=== PATIENT | female | born 1985 | race Two or more races ===

== ENCOUNTER 2020-04-18 05:07 | Inpatient (IN) | payer SELFPAY ==
[~2020-04-18] VITALS: Ht 162.6 cm; Wt 108.4 kg
[2020-04-18] MEDS ORDERED: IV RINGERS,LACTATED 1000ML 1,000 ML IV PRN (05:30)
[2020-04-18] MEDS ORDERED: IV RINGERS,LACTATED 1000ML 1,000 ML IV SCH (05:44)
[2020-04-18] MEDS ORDERED: BUTORPHANOL 2 MG/ML VIAL. IVP PRN ×2 (05:45)
[2020-04-18] MEDS ORDERED: 0.9 % SODIUM CHLORIDE 10 ML DISP.SYRIN. IV PRN ×2 (05:45→08:00)
[2020-04-18] MEDS ORDERED: LIDOCAINE 1% PF 30 ML VIAL. INJ PRN (05:45)
[2020-04-18] MEDS ORDERED: ONDANSETRON PF 4 MG/2 ML VIAL. IVP PRN (05:45)
[2020-04-18] MEDS ORDERED: TERBUTALINE 1 MG/ML VIAL. SQ PRN (05:45)
[2020-04-18] MEDS ORDERED: OXYTOCIN 30 UNIT/500 ML PREMIX 500 ML IV PRN ×3 (05:45→08:00)
[2020-04-18] MEDS ORDERED: ACETAMINOPHEN 325 MG TABLET. PO PRN ×2 (05:45→08:00)
[2020-04-18] MEDS ORDERED: fentaNYL PF VIAL 100 MCG/2 ML VIAL IVP PRN ×3 (05:45)
[2020-04-18 05:54] LABS: BILIRUBIN,URINE NEGATIVE (NEG); CLARITY,URINE CLEAR; COLOR,URINE YELLOW; NITRITE,URINE NEGATIVE (NEG); PH,URINE 6.5 (<5.0-8.0); PROTEIN,URINE NEGATIVE (NEG-TRACE); UROBILINOGEN,URINE 0.2 mg/dL (0.2 mg/dL)
[2020-04-18 06:02] LABS: BARBITURATES NEG (NEG); BENZODIAZEPINES NEG (NEG); CANNABINOIDS NEG (NEG); COCAINE NEG (NEG); METHADONE NEG (NEG); OPIATES NEG (NEG); PHENCYCLIDINE NEG (NEG)
[2020-04-18 06:04] LABS: BACTERIA,URINE MODERATE /HPF (0-FEW); SQUAMOUS EPITHELIAL CELL,UR MANY /LPF
[2020-04-18 06:08] LABS: AMPHETAMINE/METHAMPHETAMINE NEG (NEG)
[2020-04-18 06:36] LABS: BASO % 0 % (0-3); EOS % 1 % (0-3); HEMATOCRIT 33.4 % (36.0-47.0); HEMOGLOBIN 11.1 g/dL (12.0-15.5); LYMPH # 1.8 x10^3/uL (1.0-4.8); LYMPH % 22 % (24-48); MEAN CORPUSCULAR HEMOGLOBIN 27 pg (25-35); MEAN CORPUSCULAR HGB CONC 33 g/dL (31-37); MEAN CORPUSCULAR VOLUME 82 fL (79-100); MONO # 0.6 x10^3/uL (0.0-1.1); MONO % 7 % (0-9); NEUT # 5.7 x10^3/uL (1.8-7.7); NEUT % 71 % (31-73); PLATELET COUNT 232 x10^3/uL (140-400); RED BLOOD COUNT 4.05 x10^6/uL (3.50-5.40); RED CELL DISTRIBUTION WIDTH 15.4 % (11.5-14.5); WHITE BLOOD COUNT 8.1 x10^3/uL (4.0-11.0)
--- NOTE | 2020-04-18 07:52 | PDOC ---
GENERAL General: 35yrs old lady EDC 04/23/20 admitted in active labor with contractions. ALLERGIES Allergies: Allergies Coded Allergies Type Severity Reaction Last Updated Verified No Known Drug Allergies 04/18/20 No MEDS Medications: Current Medications Medications (Trade) Dose Ordered Sig/[place] Route PRN Reason Start Time Stop Time Status Last Admin Dose Admin Ringer's Solution 1,000 ml @ 125 mls/hr Q8H IV 04/18/20 05:44 04/18/20 06:14 LAB Lab: Laboratory Tests Test 04/18/20 05:45 04/18/20 06:15 Urine Collection Type Unknown Urine Color Yellow Urine Clarity Clear Urine pH 6.5 (<5.0-8.0) Urine Specific [place] 1.010 (1.000-1.030) Urine Protein Negative mg/dL (NEG-TRACE) Urine Glucose (UA) Negative mg/dL (NEG) Urine Ketones (Stick) Negative mg/dL (NEG) Urine Blood Large (NEG) Urine Nitrite Negative (NEG) Urine Bilirubin Negative (NEG) Urine Urobilinogen Dipstick 0.2 mg/dL (0.2 mg/dL) Urine Leukocyte Esterase Small (NEG) Urine RBC 6-10 /HPF (0-2) Urine WBC 11-20 /HPF (0-4) Urine Squamous Epithelial Cells Many /LPF Urine Bacteria Moderate /HPF (0-FEW) Urine Opiates Screen Neg (NEG) Urine Methadone Screen Neg (NEG) Urine Barbiturates Neg (NEG) Urine Phencyclidine Screen Neg (NEG) Urine Amphetamine/Methamphetamine Neg (NEG) Urine Benzodiazepines Screen Neg (NEG) Urine Cocaine Screen Neg (NEG) Urine Cannabinoids Screen Neg (NEG) Urine Ethyl Alcohol Neg (NEG) White Blood Count 8.1 x10^3/uL (4.0-11.0) Red Blood Count 4.05 x10^6/uL (3.50-5.40) Hemoglobin 11.1 g/dL (12.0-15.5) L Hematocrit 33.4 % (36.0-47.0) L Mean Corpuscular Volume 82 fL (79-100) Mean Corpuscular Hemoglobin 27 pg (25-35) Mean Corpuscular Hemoglobin Concent 33 g/dL (31-37) Red Cell Distribution Width 15.4 % (11.5-14.5) H Platelet Count 232 x10^3/uL (140-400) Neutrophils (%) (Auto) 71 % (31-73) Lymphocytes (%) (Auto) 22 % (24-48) L Monocytes (%) (Auto) 7 % (0-9) Eosinophils (%) (Auto) 1 % (0-3) Basophils (%) (Auto) 0 % (0-3) Neutrophils # (Auto) 5.7 x10^3/uL (1.8-7.7) Lymphocytes # (Auto) 1.8 x10^3/uL (1.0-4.8) Monocytes # (Auto) 0.6 x10^3/uL (0.0-1.1) Eosinophils # (Auto) 0.0 x10^3/uL (0.0-0.7) Basophils # (Auto) 0.0 x10^3/uL (0.0-0.2) Laboratory Tests 04/18/20 06:15 ASSESSMENT & PLAN A&P in active Labor. Cervix dilated to 5 to 6 cms.Membranes intact. Plan Vaginal Delivery. STEFAN ALVARADO MD April 18, 2020 07:52
--- NOTE | 2020-04-18 07:57 | HP ---
ADMIT DATE: 04/18/2020 CHIEF COMPLAINT AND HISTORY OF PRESENT ILLNESS: This patient is a 35-year-old [place] lady who had care at the [facility], came into the hospital with a history of having contractions. The patient in active labor. At the time of admission to the hospital, cervix was dilated to 5-6 cm and she is 3, para 2. Membranes intact, vertex presenting. The patient admitted to the hospital. PHYSICAL EXAMINATION: VITAL SIGNS: Reveals vital signs being stable. ABDOMEN: Term size uterus. heart tones are 140 per minute, vertex presenting. PELVIC: As mentioned above, 5-6 cm dilated and the patient in active labor. ALLERGIES: None known. REVIEW OF SYSTEMS: Essentially negative. IMPRESSION: 3, para 2, the patient in active labor. PLAN: Vaginal delivery. STEFAN ALVARADO MD DR: RUPESH/ponce JOB#: [id number] / [id number]
[2020-04-18] MEDS ORDERED: MAG HYDROX/ALUMINUM HYD/SIMETH 30 ML ORAL.SUSP PO PRN (08:00)
[2020-04-18] MEDS ORDERED: TDaP (Adacel) per PROTOCOL. MC PRN (08:00)
[2020-04-18] MEDS ORDERED: oxyCODONE/APAP 5/325 1 TAB TABLET PO PRN (08:00)
[2020-04-18] MEDS ORDERED: ZOLPIDEM 5 MG TABLET. PO PRN (08:00)
[2020-04-18] MEDS ORDERED: diphenhydrAMINE HCL 25 MG CAPSULE PO PRN (08:00)
[2020-04-18] MEDS ORDERED: DOCUSATE SODIUM 100 MG CAPSULE. PO PRN (08:00)
[2020-04-18] MEDS ORDERED: MAGNESIUM HYDROXIDE 2,400 MG/30 ML ORAL.SUSP. PO PRN (08:00)
[2020-04-18] MEDS ORDERED: SIMETHICONE 80 MG TAB.CHEW PO PRN (08:00)
[2020-04-18] MEDS ORDERED: PHENYLEPH/MINERAL OIL/PETROLAT RECTAL OINTMENT TUBE. RC PRN (08:00)
[2020-04-18] MEDS ORDERED: HYDROCORTISONE 1% TOPICAL OINTMENT 30GM TUBE. TP PRN (08:00)
[2020-04-18] MEDS ORDERED: MMR per PROTOCOL. MC PRN (08:00)
[2020-04-18] MEDS ORDERED: BENZOCAINE 20% TOPICAL AEROSOL SPRAY 57GM CAN. TP PRN (08:00)
--- NOTE | 2020-04-18 08:10 | OP ---
DATE OF SURGERY: DELIVERY NOTE This patient is a 35-year-old [place] lady who came from [facility], came into the Labor and Delivery at the hospital with a history of having contractions and the patient in active labor. She has had previous 2 normal deliveries, EDC 04/23 and has had care at [facility]. At the time of admission to the hospital, she was dilated to 5-6 cm, membranes intact, vertex presenting. The patient in active labor. She did have a normal course of labor, got to complete dilatation and had spontaneous rupture of membranes and had a spontaneous vaginal delivery. A live male infant weighing 8 pounds 9.4 ounce was delivered at 0728 hours on 04/18/2020 with score of 8, 9 and 9 without any problem. There was cord around the neck twice, which was released at the time of the delivery and this cord around the neck was released and cord was clamped and cut. Baby is referred to refrigerator room clerk for further care and treatment. Cord blood was taken. Placenta removed spontaneous. No hemorrhage noted. She did receive Pitocin after delivery of the placenta. Visualization perineum revealed no tears. Mother tolerated the delivery well. No complications at the time of the delivery. Estimated blood loss about 100 mL. STEFAN ALVARADO MD DR: RUPESH/nts JOB#: [id number] / [id number]
[2020-04-18] MEDS: IBUPROFEN 400 MG TABLET. PO PRN ×2 (08:16→17:49)
[2020-04-18 10:30] VITALS: BP 133/82
[2020-04-18 11:30] VITALS: BP 123/79
[2020-04-18] MEDS ORDERED: IBUPROFEN 200 MG TABLET. PO SCH (12:00)
[2020-04-18] MEDS ORDERED: FERROUS SULFATE 325 MG TABLET. PO SCH (17:00)
[2020-04-18 18:29] VITALS: BP 142/82
[2020-04-18 22:17] VITALS: BP 131/81
[2020-04-19 02:42] VITALS: BP 128/86
--- NOTE | 2020-04-19 04:56 | NUR ---
COVID NEGATIVE 04/18/2020 SPECIMEN [id number]: [id number] [facility]
[2020-04-19 06:19] VITALS: BP 133/81
[2020-04-19] MEDS ORDERED: DIPH,PERTUSS(ACELL),TET VAC/PF 0.5 ML SYRINGE. VAX IM ONE (07:00)
--- NOTE | 2020-04-19 10:33 | PDOC ---
GENERAL General: Patient doing ok. No Problems. VITAL SIGNS Vital Signs/I&O: Vital Signs Date Time Temp Pulse Resp B/P (MAP) Pulse Ox O2 Delivery O2 Flow Rate FiO2 04/19/20 06:19 98.5 88 18 133/81 (98) 95 Room Air 98.5 I & O 04/18/20 04/18/20 04/19/20 15:00 23:00 07:00 Output Total 2 ml Balance -2 ml ALLERGIES Allergies: Allergies Coded Allergies Type Severity Reaction Last Updated Verified No Known Drug Allergies 04/18/20 No LAB Lab: Laboratory Tests Test 04/19/20 05:15 Hematocrit 31.9 % (36.0-47.0) L Laboratory Tests 04/19/20 05:15 ASSESSMENT & PLAN A&P Abdomen soft. Vital signs stable. Will Dismiss patient today. Will see her in office in 6 weeks. STEFAN ALVARADO MD April 19, 2020 10:33
[2020-04-19 11:20] VITALS: BP 134/82
[2020-04-19 14:00] VITALS: BP 131/86
== END 2020-04-19 17:00 | disposition home or self-care (01) | DRG 807 ==
LOC: OBSVTOIN 05:07 → 3 SO LND 05:07 → 3 NORTH 10:30
PROVIDERS: ADMIT Obstetrics & Gynecology; ATTEND Obstetrics & Gynecology
PROC: 10E0XZZ Delivery of Products of Conception, External Approach (ICD-10-PCS; principal; 2020-04-18)
DX: O69.81X0 Labor and delivery complicated by cord around neck, without compression, not applicable or unspecified (principal); Z37.0 Single live birth; Z20.828 Contact with and (suspected) exposure to other viral communicable diseases; Z3A.00 Weeks of gestation of pregnancy not specified
CPT/HCPCS: 36415; 80307; 81001; 85014; 85025; 86592; 86850; 86900; 86901; 87086; 87340; J7120; G0378; U0003-CS